=== PATIENT | female | born 1945 | race Two or more races ===

== ENCOUNTER 2020-11-29 05:42 | Inpatient (IN) | payer OTHER, MEDICAID ==
[~2020-11-29] VITALS: Ht 152.4 cm; Wt 72.6 kg
[~2020-11-29 05:42] MED LIST: AMLO-496 PO; APIX2.5T PO; GLIP5TAB12 PO; MEMA28CA; METF-372 PO; METO-6 PO; OMEP20CA74 PO; PRAV20TA3
[2020-11-29 06:52] LABS: Urine Bacteria NONE SEEN /hpf (None Seen); Urine Blood Negative /uL (Negative); Urine Specific Gravity 1.006 (1.001-1.035); Urine WBC 12 /hpf (0 - 5)
[2020-11-29 07:24] LABS: Basophils # (auto) 0 10 ^3/uL (0-0.2); Basophils % (auto) 0.6 % (0.0-2.0); Eosinophils # (auto) 0.1 10 ^3/uL (0-0.8); Eosinophils % (auto) 1.9 % (0.0-7.0); Hemoglobin 11.8 g/dL (12.2-16.2); Lymphocytes # (auto) 1.2 10 ^3/uL (0.4-5.4); Lymphocytes % (auto) 16.7 % (10.0-50.0); Mean Corpuscular Hemoglobin 30.4 pg (28.0-32.0); Mean Corpuscular Hgb Conc. 34.6 g/dL (32.0-36.0); Monocytes # (auto) 0.3 10 ^3/uL (0-1.3); Monocytes % (auto) 4.6 % (0.0-12.0); Neutrophils # (auto) 5.6 10 ^3/uL (1.6-8.6); Neutrophils % (auto) 76.2 % (37.0-80.0); Nucleated Red Blood Cells % 0.1 %; Red Blood Cells 3.87 10^6/uL (4.0-5.20); Red Cell Distribution Width 14.3 % (11.8-14.3); White Blood Cell 7.4 10^3/uL (4.4-10.8)
[2020-11-29] MEDS ORDERED: cefTRIAXone 1GM/50ML D5W 50 ML IV ONE (07:45)
[2020-11-29 07:51] LABS: Chloride 106 mmol/L (98-107); Potassium 3.3 mmol/L (3.5-5.1); Sodium 140 mmol/L (136-145)
[2020-11-29 07:53] LABS: INR 1.3 (0.9-1.15); Partial Thromboplastin Time 26.3 sec (23.0-31.2)
[2020-11-29 08:04] LABS: Alanine Aminotransferase 18 U/L (13-56); Albumin 3.6 g/dL (3.4-5.0); Alkaline Phosphatase 73 U/L (45-117); Anion Gap 7 (5-15); Aspartate Aminotransferase 13 U/L (15-37); Bilirubin, Total 0.6 mg/dL (0.2-1.0); Blood Urea Nitrogen 10 mg/dL (7-18); Calcium 8.9 mg/dL (8.5-10.1); Carbon Dioxide 27 mmol/L (21-32); GFR African American 94 mL/min; GFR Non-African American 78 mL/min; Glucose 167 mg/dL (74-106); Total Protein 7.5 g/dL (6.4-8.2)
[2020-11-29] MEDS ORDERED: SODIUM CHLORIDE 0.9% 1,000 ML IV ONE (09:15)
[2020-11-29] MEDS ORDERED: NITROGLYCERIN 0.4 MG SL TAB SL PRN (09:15)
[2020-11-29] MEDS ORDERED: MORPHINE SULF INJ 2 MG/ML SYRINGE 1ML IV PRN (09:15)
[2020-11-29] MEDS ORDERED: POTASSIUM CHL 20MEQ/100ML 100 ML IV SCH ×2 (10:45→12:00)
[2020-11-29] MEDS ORDERED: DEXTROSE (50%) 50ML SYRG IV PRN (11:00)
[2020-11-29] MEDS: ACCU-CHEK COMFORT CURVE STRIP VI SCH ×2 (12:10→18:45)
[2020-11-29] MEDS: InsuLIN REG 1unit/0.01ml Soln (100units/ml) SC SCH ×2 (12:13→18:45)
[2020-11-29 23:23] LABS: Folate (Folic Acid) 17.59 ng/mL (5.38-24)
[2020-11-30] MEDS: APIXABAN 2.5 MG TAB PO SCH ×3 (00:55→20:56)
[2020-11-30] MEDS: ATORVASTATIN 20 MG TAB PO SCH ×2 (00:55→21:04)
[2020-11-30] MEDS: PRAVASTATIN SODIUM 20 MG TAB PO SCH ×2 (00:56→21:04)
[2020-11-30] MEDS: InsuLIN REG 1unit/0.01ml Soln (100units/ml) SC SCH ×4 (05:59→17:36)
[2020-11-30] MEDS: ACCU-CHEK COMFORT CURVE STRIP VI SCH ×4 (06:00→17:37)
[2020-11-30 06:29] LABS: Basophils # (auto) 0.1 10 ^3/uL (0-0.2); Basophils % (auto) 0.7 % (0.0-2.0); Eosinophils # (auto) 0 10 ^3/uL (0-0.8); Eosinophils % (auto) 0.4 % (0.0-7.0); Hematocrit 33.6 % (36.0-46.0); Hemoglobin 11.6 g/dL (12.2-16.2); Lymphocytes # (auto) 1.8 10 ^3/uL (0.4-5.4); Lymphocytes % (auto) 21.2 % (10.0-50.0); Mean Corpuscular Hemoglobin 30.3 pg (28.0-32.0); Mean Corpuscular Hgb Conc. 34.6 g/dL (32.0-36.0); Mean Corpuscular Volume 87.7 fL (80.0-100.0); Monocytes # (auto) 0.5 10 ^3/uL (0-1.3); Monocytes % (auto) 5.8 % (0.0-12.0); Neutrophils % (auto) 71.9 % (37.0-80.0); Red Blood Cells 3.83 10^6/uL (4.0-5.20); Red Cell Distribution Width 14.2 % (11.8-14.3); White Blood Cell 8.4 10^3/uL (4.4-10.8)
[2020-11-30 06:42] LABS: Calcium 8.3 mg/dL (8.5-10.1); Potassium 3.3 mmol/L (3.5-5.1)
[2020-11-30 06:44] LABS: BUN/Creatinine Ratio 19.3
[2020-11-30 08:45] VITALS: BP 121/59
[2020-11-30 09:00] VITALS: BP 121/59
[2020-11-30] MEDS: amLODIPine BESYLATE 5 MG TAB PO SCH (09:59)
[2020-11-30] MEDS: MEMANTINE 28 MG PO SCH (10:00)
[2020-11-30] MEDS ORDERED: PATIENTS OWN MEDICATION (Amlodipine Besylate 1 TAB) PO SCH (10:00)
[2020-11-30] MEDS ORDERED: OMEPRAZOLE 20MG/10ML ORAL SUSP PO SCH (10:00)
[2020-11-30] MEDS ORDERED: MEMANTINE HYDROCHLORIDE SCH (10:00)
[2020-11-30] MEDS: METOPROLOL SUCCINATE XL 50 MG TAB PO SCH (10:00)
[2020-11-30] MEDS: PANTOPRAZOLE 40 MG TAB PO SCH (10:00)
[2020-11-30] MEDS: cefTRIAXone 1GM/50ML D5W 50 ML IV SCH (10:01)
[2020-11-30] MEDS ORDERED: POTASSIUM CHL 20MEQ/100ML 100 ML IV ONE (12:00)
[2020-11-30] MEDS ORDERED: ATOR20TA50 PO (12:09)
[2020-11-30] MEDS: MAGNESIUM SULFATE 1GM/100ML 100 ML IV SCH ×2 (12:30→14:50)
[2020-11-30 12:45] VITALS: BP 123/75
[2020-11-30 15:57] VITALS: BP 121/59
[2020-11-30 16:39] VITALS: BP 124/69
[2020-11-30 22:00] VITALS: BP 126/71
[2020-11-30 22:04] LABS: Hematocrit 31.9 % (36.0-46.0)
[2020-12-01] MEDS: ACCU-CHEK COMFORT CURVE STRIP VI SCH ×4 (00:05→18:12)
[2020-12-01] MEDS: InsuLIN REG 1unit/0.01ml Soln (100units/ml) SC SCH ×4 (00:09→18:13)
[2020-12-01 05:00] VITALS: BP 110/61
[2020-12-01 06:39] LABS: Urine Bacteria NONE SEEN /hpf (None Seen); Urine Blood 3+ /uL (Negative); Urine Budding Yeast FEW /hpf (None Seen); Urine Mucus FEW (None Seen); Urine Specific Gravity 1.015 (1.001-1.035); Urine WBC 284 /hpf (0 - 5)
[2020-12-01 09:00] VITALS: BP 103/54
[2020-12-01] MEDS: cefTRIAXone 1GM/50ML D5W 50 ML IV SCH (09:19)
[2020-12-01] MEDS: PANTOPRAZOLE 40 MG TAB PO SCH (09:21)
[2020-12-01] MEDS: METOPROLOL SUCCINATE XL 50 MG TAB PO SCH (09:22)
[2020-12-01] MEDS: amLODIPine BESYLATE 5 MG TAB PO SCH (09:23)
[2020-12-01] MEDS: APIXABAN 2.5 MG TAB PO SCH ×2 (09:23→22:00)
[2020-12-01] MEDS: MEMANTINE 28 MG PO SCH (09:24)
[2020-12-01] MEDS ORDERED: APIX2.5T PO (11:35)
[2020-12-01 11:47] LABS: Basophils # (auto) 0 10 ^3/uL (0-0.2); Basophils % (auto) 0.7 % (0.0-2.0); Eosinophils # (auto) 0 10 ^3/uL (0-0.8); Eosinophils % (auto) 0.2 % (0.0-7.0); Hematocrit 31.4 % (36.0-46.0); Hemoglobin 10.9 g/dL (12.2-16.2); Lymphocytes # (auto) 1.3 10 ^3/uL (0.4-5.4); Lymphocytes % (auto) 17.1 % (10.0-50.0); Mean Corpuscular Hemoglobin 30.4 pg (28.0-32.0); Mean Corpuscular Hgb Conc. 34.7 g/dL (32.0-36.0); Mean Corpuscular Volume 87.6 fL (80.0-100.0); Monocytes # (auto) 0.5 10 ^3/uL (0-1.3); Monocytes % (auto) 6.6 % (0.0-12.0); Neutrophils # (auto) 5.6 10 ^3/uL (1.6-8.6); Neutrophils % (auto) 75.4 % (37.0-80.0); Red Blood Cells 3.58 10^6/uL (4.0-5.20); Red Cell Distribution Width 14.4 % (11.8-14.3); White Blood Cell 7.4 10^3/uL (4.4-10.8)
[2020-12-01 12:04] LABS: BUN/Creatinine Ratio 16.4; Calcium 8.1 mg/dL (8.5-10.1); Potassium 3.6 mmol/L (3.5-5.1)
[2020-12-01 13:00] VITALS: BP 110/58
[2020-12-01 16:40] VITALS: BP 115/67
[2020-12-01] MEDS ORDERED: ACETAMINOPHEN 325 MG TAB PO PRN (17:15)
[2020-12-01 22:00] VITALS: BP 111/67
[2020-12-01] MEDS: ATORVASTATIN 20 MG TAB PO SCH (22:26)
[2020-12-01] MEDS: PRAVASTATIN SODIUM 20 MG TAB PO SCH (22:27)
[2020-12-02] MEDS: ACCU-CHEK COMFORT CURVE STRIP VI SCH ×2 (00:07→05:52)
[2020-12-02] MEDS: InsuLIN REG 1unit/0.01ml Soln (100units/ml) SC SCH ×2 (00:29→05:52)
[2020-12-02 05:29] VITALS: BP 109/59
[2020-12-02 09:00] VITALS: BP 111/66
[2020-12-02] MEDS: APIXABAN 2.5 MG TAB PO SCH (10:00)
[2020-12-02] MEDS: MEMANTINE 28 MG PO SCH (10:00)
[2020-12-02] MEDS: PANTOPRAZOLE 40 MG TAB PO SCH (10:12)
[2020-12-02] MEDS: amLODIPine BESYLATE 5 MG TAB PO SCH (10:12)
[2020-12-02] MEDS: cefTRIAXone 1GM/50ML D5W 50 ML IV SCH (10:12)
[2020-12-02] MEDS: METOPROLOL SUCCINATE XL 50 MG TAB PO SCH (10:12)
== END 2020-12-02 11:33 | disposition home health service (06) | DRG 64 ==
LOC: ER 05:42 → EDBD 05:42 → TELE 09:04 → TELE-EAST 11-30 08:45 → TELE-WESTW 12-01 21:58
PROVIDERS: ADMIT Internal Medicine; ATTEND Internal Medicine
DX: I63.512 Cerebral infarction due to unspecified occlusion or stenosis of left middle cerebral artery (principal); G93.41 Metabolic encephalopathy; N39.0 Urinary tract infection, site not specified; R47.01 Aphasia; H53.461 Homonymous bilateral field defects, right side; E87.6 Hypokalemia; I48.91 Unspecified atrial fibrillation; E11.9 Type 2 diabetes mellitus without complications; K21.9 Gastro-esophageal reflux disease without esophagitis; Z20.822 Contact with and (suspected) exposure to COVID-19; E78.5 Hyperlipidemia, unspecified; E83.42 Hypomagnesemia; F03.90 Unspecified dementia, unspecified severity, without behavioral disturbance, psychotic disturbance, mood disturbance, and anxiety; I11.0 Hypertensive heart disease with heart failure; I50.9 Heart failure, unspecified; Z79.01 Long term (current) use of anticoagulants; Z79.899 Other long term (current) drug therapy; Z82.49 Family history of ischemic heart disease and other diseases of the circulatory system; Z83.3 Family history of diabetes mellitus; Z90.710 Acquired absence of both cervix and uterus
CPT/HCPCS: 36415; 70450; 70551; 71045; 76536; 80048; 80053; 81001; 82140; 82607; 82746; 82962; 83735; 83880; 84436; 84443; 84480; 84484; 85014; 85018; 85025; 85610; 85730; 87040; 87081; 87086; 87426; 92610; 93005; 93306; 93886; 96365; 97116; 97163; 97530; G0378; J0696; J1815; J3480

== ENCOUNTER 2024-11-12 10:57 | Inpatient (IN) | payer OTHER ==
[~2024-11-12] VITALS: Ht 144.8 cm; Wt 54.5 kg
[~2024-11-12 10:57] MED LIST changes: -AMLO-496 PO; +AMLO1TAB23 PO; +ATOR20TA50 PO; +BACDST PO; -GLIP5TAB12 PO; -PRAV20TA3
--- NOTE | 2024-11-12 11:04 | ED.PDOC ---
History of Present Illness HPI Comments HPI: This is a 78 year old female ANGÉLICAA presenting to the ED with chief complaint of nausea. EMS reports that the patient's family had noticed the patient appeared nauseous with associated diaphoresis and pale skin, however, after calling 911, all her symptoms resolved at home. EMS relays that the family wish ed to have her transported to the hospital anyway for evaluation. EMS states patient is difficult to converse with at baseline due to her history of dementia. Patient unable to answer questions properly at this time. Initial Vitals BP: 120/86 HR: 110 RR: 20 O2 Sat: 98% Temp: 97.8F Past Medical history: HTN, DM, CVA, A-Fib, CHF, Dementia Past Surgical history: Hysterectomy Social History: Denies smoking, ETOH, and drug use. Allergies: NKDA REVIEW OF SYSTEMS: Unable to obtain given the patient dementia. CONSTITUTIONAL: Denies acute: fever, diaphoresis, chills, generalized weakness. HEAD: Denies acute: headache, photophobia Eyes: Denies acute: Double vision, vision loss, eye pain, eye discharge. EARS: Denies acute: tinnitus, hearing loss, ear discharge, ear pain, THROAT: Denies acute: sore throat, swelling, difficulty swallowing , pain with swallowing, change in voice. NECK: Denies acute: neck pain, neck swelling, stiff neck. HEART: Denies acute : chest pain, palpitations, LUNGS: Denies acute: SOB, wheezing, cough, hemoptysis ABDOMEN: Denies acute: abdominal pain, Nausea, Vomiting, diarrhea, melena , hematemesis, hematochezia SKIN: Denies acute: rash, redness, lesions, itchiness. EXTREMITIES: Denies acute: calf pain, numbness, tingling, weakness, denies pain in extremity. Denies acute: Low back pain. Neuro: Denies acute: focal neurological deficit, motor or sensory focal neurological deficit, tremors, seizure like activity, confusion, dizziness, change in mental status, loss of bowel or bladder function, cauda equina like symptoms. : Denies acute: dysuria, hematuria, flank pain, increase in urinary frequency. PSYCH: Denies acute: hallucination, suicidal ideation, homicidal ideation. FEMALE: Denies acute: abnormal vaginal bleeding, foul odor, unusual discharge. PHYSICAL EXAM: General: ----no----acute distress, awake and alert. Head: normocephalic, atraumatic. Neck: supple, trachea is midline, no swelling. Throat: Normal phonation. Eyes:, no erythema, no purulent discharge, no proptosis, no icterus. Heart: regular rate, regular rhythm, no significant murmur appreciated. Lungs: no apparent respiratory distress, No wheezing, no rhonchi, no crackles. No stridors Clear to auscultation bilaterally. Abdomen: non tender to palpation, non distended, soft, no guarding, no rebound, + bowel sounds. Neuro: Awake, Alert, baseline dementia. Skin: no petechia, no purpura, no cyanosis, non-pale, not jaundice. Lower extremities: --no - Pitting edema no deformity, no focal swelling, no calf TTP. Makes eye contact. moves all four extremities. Face: no apparent facial droop. ED COURSE: DISCLAIMER: This medical document was created using an electronic medical record system with voice recognition software and computerized dictation system. Although this document has been carefully reviewed, there might still be some phonetic and typographical errors. Occasional wrong-word or "sound-alike" substitutions may have occurred due to the inherent limitations of voice recognition software. These areas are purely typographical due to imperfections of the software programs and do not reflect any compromise in the patient's medical care. Please read the chart carefully and recognize, using context, where these substitutions have occurred. Time Seen by MD: 11:02 Primary Care Provider: UNKNOWN Reviewed Notes: Nurses Notes, Medications, Allergies Allergies: Coded Allergies: NO KNOWN ALLERGIES (Unverified , 03/26/14) Home Meds Active Scripts Sulfamethoxazole W/Trimethopri (Bactrim Ds Tablet) 1 Tab Tb, 1 TAB PO BID, #14 TAB Prov:PEPE SALGADO MD 09/03/22 Apixaban Base (ELIQUIS) 2.5 Mg Tab, 5 MG PO BID, #60 TAB Prov:PEPE SALGADO MD 12/01/20 Atorvastatin Calcium (ATORVASTATIN CALCIUM) 20 Mg Tab, 40 MG PO HS, #60 TAB Prov:PEPE SALGADO MD 11/30/20 Metoprolol Succinate (Toprol Xl) 50 Mg Tb, 25 MG PO DAILY, #30 TAB Prov:GILBERT DANIELS MD 01/14/15 Reported Medications Omeprazole (PRILOSEC) 20 Mg Cap, 1 CAP PO DAILY, #90 CAP 1 Refill 01/12/15 Amlodipine Besylate (Amlodipine Besylate) 10 Mg Tab, 1 TAB PO DAILY, #90 HOLD IF SYSOLIC BP BELOW 120 01/12/15 Metformin Hydrochloride (Metformin Hcl) 1,000 Mg Tab, 1 TAB PO BID, #180 01/12/15 Memantine Hydrochloride (NAMENDA XR) 28 Mg Cap, 1 TAB DAILY, #30 01/12/15 Information Source: Patient, Emergency Med Personnel Mode of Arrival: EMS Was a procedure done? Was a procedure done?: No X-Ray, Labs, Meds, VS Vital Signs Date Time Temp Pulse Resp B/P (MAP) Pulse Ox O2 Delivery O2 Flow Rate FiO2 11/12/24 11:18 97.5 112 20 120/86 (97) 98 97.5 11/12/24 11:09 100 Lab Test 11/12/24 11:18 11/12/24 11:13 Range/Units White Blood Count 4.8 4.4-10.8 10^3/uL Red Blood Count 4.10 4.0-5.20 10^6/uL Hemoglobin 13.5 12.2-16.2 g/dL Hematocrit 39.5 36.0-46.0 % Mean Corpuscular Volume 96.3 80.0-100.0 fL Mean Corpuscular Hemoglobin 32.9 H 28.0-32.0 pg Mean Corpuscular Hemoglobin Concent 34.1 32.0-36.0 g/dL Red Cell Distribution Width 13.4 11.8-14.3 % Platelet Count 247 140-450 10^3/uL Mean Platelet Volume 7.5 6.9-10.8 fL Neutrophils (%) (Auto) 59.8 37.0-80.0 % Lymphocytes (%) (Auto) 28.7 10.0-50.0 % Monocytes (%) (Auto) 6.9 0.0-12.0 % Eosinophils (%) (Auto) 4.2 0.0-7.0 % Basophils (%) (Auto) 0.4 0.0-2.0 % Neutrophils # (Auto) 2.8 1.6-8.6 10 ^3/uL Lymphocytes # (Auto) 1.4 0.4-5.4 10 ^3/uL Monocytes # (Auto) 0.3 0-1.3 10 ^3/uL Eosinophils # (Auto) 0.2 0-0.8 10 ^3/uL Basophils # (Auto) 0 0-0.2 10 ^3/uL Nucleated Red Blood Cells 0.1 % Sodium Level 141 136-145 mmol/L Potassium Level 3.9 3.5-5.1 mmol/L Chloride Level 107 98-107 mmol/L Carbon Dioxide Level 23 20-31 mmol/L Anion Gap 11 5-15 Blood Urea Nitrogen 10 9-23 mg/dL Creatinine 0.96 0.550-1.02 mg/dL Glomerular Filtration Rate Calc 60 >90 mL/min BUN/Creatinine Ratio 10.4 10.0-20.0 Serum Glucose 231 H 74-106 mg/dL Lactic Acid Level 2.2 *H 0.4-2.0 mmol/L Calcium Level 10.0 8.7-10.4 mg/dL Total Bilirubin 1.0 0.2-1.0 mg/dL Aspartate Amino Transferase (AST) 21 13-40 U/L Alanine Aminotransferase (ALT) 11 7-40 U/L Alkaline Phosphatase 82 46-116 U/L Troponin I High Sensitivity 8 </=34 ng/L Total Protein 6.5 5.7-8.2 g/dL Albumin 4.0 3.2-4.8 g/dL Urine Color Colorless Yellow Urine Clarity Turbid H Clear Urine pH 6.0 5.0-9.0 Urine Specific [place] 1.005 1.001-1.035 Urine Protein Trace H Negative Urine Ketones Negative Negative Urine Blood 3+ H Negative /uL Urine Nitrite Negative Negative Urine Bilirubin Negative Negative Urine Urobilinogen Normal Negative mg/dL Urine Leukocyte Esterase 3+ Negative /uL Urine RBC 12 0 - 4 /hpf Urine Microscopic WBC 86 H 0-5 /HPF Urine Squamous Epithelial Cells Few <5 /hpf Urine Bacteria Mod H None Seen /hpf Urine Glucose Normal Normal mg/dL Current Medications Medications (Trade) Dose Ordered Sig/Noam Route Start Time Stop Time Status Last Admin Ceftriaxone Sodium 50 ml @ 100 mls/hr ONCE ONCE IV 11/12/24 12:15 11/12/24 12:44 DC 11/12/24 16:34 Sodium Chloride 1,000 ml @ 1,000 mls/hr Q1H ONCE IV 11/12/24 12:15 11/12/24 13:14 DC 11/12/24 16:34 Vancomycin HCl 200 ml @ 200 mls/hr ONCE ONCE IV 11/12/24 13:45 11/12/24 14:44 DC 11/12/24 17:37 [place] [id number] Ph: [phone] DIAGNOSTIC IMAGING Diagnostic Imaging Report : [id number] Signed PATIENT: RICHIE SMITH ACCT: [id number] UNIT: [id number] : 1945 LOC: ER ROOM / BED: / AGE / SEX: 78 / F ADM STATUS: REG ER SERVICE 1101 ORDERING PHYSICIAN: BECKY RUFFIN DO PROCEDURE(s): CXRP - CHEST PORTABLE REASON: wellness check ORDER NUMBER(s): [id number], ACCESSION NUMBER(s): [id number] EXAM: XY CHEST PORTABLE Indication: pain Technique: Single frontal view of the chest was obtained Comparison: XY CHEST PORTABLE on DOS: 09/03/22, CHEST XRAY 1 VIEW on DOS: 11/29/20 FINDINGS: Lines and Tubes: None Lungs: No focal consolidation. Pleura: No effusion. No pneumothorax. Cardiomediastinal contours: Unremarkable Bones: No acute osseous abnormality. IMPRESSION: No acute cardiopulmonary disease. ATED BY: ALYCIA IQBAL MD DICTATED DATE/TIME: 11/12/24 1138 SIGNED BY: ALYCIA IQBAL MD SIGNED DATE/TIME: 11/12/24 1138 CC: Time of 1ST Reevaluation: 12:02 Reevaluation 1ST: Unchanged Time of 2ND Reevaluation: 13:38 (The case was discussed with the admitting team (HPI, physical exam, labs and diagnostic tests that were available at the time of disposition, ED course, treatment plan) on the phone. They agreed to admit the patient to their service and assume care of this patient from this point forward. --- LETITIA. SEPSIS BUNDLE INITIATED) Patient Education/Counseling: Other Family Education/Counseling: No Family Present Departure 1 Departure Time of Disposition: 12:16 Impression: Primary Impression: Urinary tract infection in elderly patient Additional Impression: Elevated lactic acid level Disposition: ADMITTED INPATIENT Admit to: Tele Condition: Guarded Discharged With: Self Critical Care Note Critical Care Time?: No Heart Score Heart Score: Heart Score Response (Comments) Value History N/A 0 EKG N/A 0 Age N/A 0 Risk Factors N/A 0 Troponin N/A 0 Total 0 I personally scribed for BECKY RUFFIN DO ([email or web address]) on 11/12/24 at 11:04. Electronically submitted by Vance Merrill ([email or web address]). I personally scribed for BECKY RUFFIN DO ([email or web address]) on 11/12/24 at 11:55. Electronically submitted by Vance Merrill ([email or web address]). I personally scribed for BECKY RUFFIN DO ([email or web address]) on 11/12/24 at 20:29. Electronically submitted by Vance Merrill ([email or web address]). BECKY RUFFIN DO Nov 12, 2024 11:04
[2024-11-12 11:34] LABS: Hematocrit 39.5 % (36.0-46.0); Hemoglobin 13.5 g/dL (12.2-16.2); Mean Corpuscular Hemoglobin 32.9 pg (28.0-32.0); Mean Corpuscular Volume 96.3 fL (80.0-100.0); Nucleated Red Blood Cells % 0.1 %
--- NOTE | 2024-11-12 11:40 | DVH ---
EXAM: XY CHEST PORTABLE Indication: pain Technique: Single frontal view of the chest was obtained Comparison: XY CHEST PORTABLE on DOS: 09/03/22, CHEST XRAY 1 VIEW on DOS: 11/29/20 FINDINGS: Lines and Tubes: None Lungs: No focal consolidation. Pleura: No effusion. No pneumothorax. Cardiomediastinal contours: Unremarkable Bones: No acute osseous abnormality. IMPRESSION: No acute cardiopulmonary disease.
[2024-11-12 11:50] LABS: Alanine Aminotransferase 11 U/L (7-40); Albumin 4.0 g/dL (3.2-4.8); Alkaline Phosphatase 82 U/L (46-116); Anion Gap 11 (5-15); BUN/Creatinine Ratio 10.4 (10.0-20.0); Bilirubin, Total 1.0 mg/dL (0.2-1.0); Blood Urea Nitrogen 10 mg/dL (9-23); Calcium 10.0 mg/dL (8.7-10.4); Carbon Dioxide 23 mmol/L (20-31); Chloride 107 mmol/L (98-107); Potassium 3.9 mmol/L (3.5-5.1); Sodium 141 mmol/L (136-145); Total Protein 6.5 g/dL (5.7-8.2)
[2024-11-12 11:51] LABS: Glucose 231 mg/dL (74-106)
[2024-11-12 11:56] LABS: Lactic Acid w/Reflex 2.2 mmol/L (0.4-2.0)
[2024-11-12] MEDS: cefTRIAXone 1GM/50ML D5W 50 ML IV ONE (13:25)
[2024-11-12] MEDS: SODIUM CHLORIDE 0.9% 1,000 ML IV ONE (13:26)
[2024-11-12] MEDS ORDERED: CEFEPIME 1GM/ 50ML 50 ML IV SCH (14:00)
[2024-11-12] MEDS ORDERED: ACETAMINOPHEN 325 MG TAB PO PRN (14:30)
[2024-11-12] MEDS ORDERED: NITROGLYCERIN 0.4 MG SL TAB SL PRN (14:30)
[2024-11-12] MEDS ORDERED: MORPHINE SULFATE INJ 2 MG/ml SYRG IV PRN (14:30)
[2024-11-12] MEDS ORDERED: ONDANSETRON HCL 4 MG/2 ML VIAL IV PRN (14:30)
[2024-11-12] MEDS ORDERED: DEXTROSE (50%) 50ML SYRG IV PRN (14:30)
--- NOTE | 2024-11-12 14:30 | DVHHP2 ---
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 Dyspnea, Edema, Lt Headedness, Other Neurological: Confusion Allergies: Coded Allergies: NO KNOWN ALLERGIES (Unverified , 03/26/14) Medications Current Medications Medications Dose Ordered Sig/Noam Route Start Time Stop Time Status Last Admin Dose Admin Apixaban 5 mg BID PO 11/12/24 22:00 Atorvastatin Calcium 40 mg HS PO 11/12/24 22:00 Metoprolol Succinate 25 mg DAILY PO 11/13/24 10:00 Cefepime HCl 50 ml @ 12.5 mls/hr Q12HR IV 11/12/24 22:00 Exam Vital Signs Vital Signs Date Time Temp Pulse Resp B/P (MAP) Pulse Ox O2 Delivery O2 Flow Rate FiO2 11/12/24 11:18 97.5 112 20 120/86 (97) 98 97.5 General Appearance: Alert, Other (confused and agitated. family at bedside) HEENT: Atraumatic, PERRLA Respiratory: Clear to auscultation, Normal air movement Cardiovascular: Regular rate, Normal S1, Normal S2, No murmurs Abdominal: Normal bowel sounds, Soft, No tenderness Extremities: No edema, Normal pulses Skin: No rashes Psych/Mental Status: Other (confused) Labs/Xrays Labs Test 11/12/24 11:18 11/12/24 11:13 Range/Units White Blood Count 4.8 4.4-10.8 10^3/uL Red Blood Count 4.10 4.0-5.20 10^6/uL Hemoglobin 13.5 12.2-16.2 g/dL Hematocrit 39.5 36.0-46.0 % Mean Corpuscular Volume 96.3 80.0-100.0 fL Mean Corpuscular Hemoglobin 32.9 H 28.0-32.0 pg Mean Corpuscular Hemoglobin Concent 34.1 32.0-36.0 g/dL Red Cell Distribution Width 13.4 11.8-14.3 % Platelet Count 247 140-450 10^3/uL Mean Platelet Volume 7.5 6.9-10.8 fL Neutrophils (%) (Auto) 59.8 37.0-80.0 % Lymphocytes (%) (Auto) 28.7 10.0-50.0 % Monocytes (%) (Auto) 6.9 0.0-12.0 % Eosinophils (%) (Auto) 4.2 0.0-7.0 % Basophils (%) (Auto) 0.4 0.0-2.0 % Neutrophils # (Auto) 2.8 1.6-8.6 10 ^3/uL Lymphocytes # (Auto) 1.4 0.4-5.4 10 ^3/uL Monocytes # (Auto) 0.3 0-1.3 10 ^3/uL Eosinophils # (Auto) 0.2 0-0.8 10 ^3/uL Basophils # (Auto) 0 0-0.2 10 ^3/uL Nucleated Red Blood Cells 0.1 % Sodium Level 141 136-145 mmol/L Potassium Level 3.9 3.5-5.1 mmol/L Chloride Level 107 98-107 mmol/L Carbon Dioxide Level 23 20-31 mmol/L Anion Gap 11 5-15 Blood Urea Nitrogen 10 9-23 mg/dL Creatinine 0.96 0.550-1.02 mg/dL Glomerular Filtration Rate Calc 60 >90 mL/min BUN/Creatinine Ratio 10.4 10.0-20.0 Serum Glucose 231 H 74-106 mg/dL Lactic Acid Level 2.2 *H 0.4-2.0 mmol/L Calcium Level 10.0 8.7-10.4 mg/dL Total Bilirubin 1.0 0.2-1.0 mg/dL Aspartate Amino Transferase (AST) 21 13-40 U/L Alanine Aminotransferase (ALT) 11 7-40 U/L Alkaline Phosphatase 82 46-116 U/L Troponin I High Sensitivity 8 </=34 ng/L Total Protein 6.5 5.7-8.2 g/dL Albumin 4.0 3.2-4.8 g/dL Urine Color Colorless Yellow Urine Clarity Turbid H Clear Urine pH 6.0 5.0-9.0 Urine Specific [place] 1.005 1.001-1.035 Urine Protein Trace H Negative Urine Ketones Negative Negative Urine Blood 3+ H Negative /uL Urine Nitrite Negative Negative Urine Bilirubin Negative Negative Urine Urobilinogen Normal Negative mg/dL Urine Leukocyte Esterase 3+ Negative /uL Urine RBC 12 0 - 4 /hpf Urine Microscopic WBC 86 H 0-5 /HPF Urine Squamous Epithelial Cells Few <5 /hpf Urine Bacteria Mod H None Seen /hpf Urine Glucose Normal Normal mg/dL SEPSIS Sepsis Screen Date sepsis recognized/suspect: Nov 12, 2024 Time Sepsis recognized/suspect: 1099 Recent Procedure: No On Antibiotic Therapy: No Respiratory Rate >20: No Heart Rate >90: Yes Temp<36 C (96.8 F) or >38.3 C: No SBP <90 or MAP <65 mmHG: No New Acute Mental Status Change: No Is the patient on CPAP, BIPAP,: No Physician Orders Baby Stroller Rental Clerk (11/12/24 ) Chest Portable (11/12/24 11:01) Electrocardigram (11/12/24 11:01) Troponin-I Hs (11/12/24 12:01) Troponin-I Hs (11/12/24 14:01) Blood Culture (11/12/24 13:25) Apixaban (Eliquis) (11/12/24 22:00) Atorvastatin (Lipitor) (11/12/24 22:00) Metoprolol Xl Succinate (Toprol Xl) (11/13/24 10:00) Urine Bacterial Culture (11/12/24 13:35) PTPTT (11/12/24 13:36) Accucheck (11/12/24 13:36) Vancomycin 1gm/200ml Pm (11/12/24 13:45) Lactic Acid W/ Reflex Order (11/12/24 14:00) Lactic Acid W/ Reflex Order (11/12/24 16:00) Notify Md If Map <65 Or Bp<90 (11/12/24 13:36) If Map<65 Start Vasopressor (11/12/24 13:36) Sepsis Reassesment After Fluid (11/12/24 14:36) Cefepime 1gm/ 50ml (Maxipime 1gm/50ml) (11/12/24 22:00) Admit (11/12/24 14:26) Cardiac Diet-2gna,Lofat,Lochol (11/12/24 Dinner) Pt Request For Service (11/12/24:) Basic Metabolic Panel (11/13/24 04:00) Complete Blood Count (11/13/24 04:00) Nitroglycerin Sublingual (Ntrostat Subli (11/12/24:) Morphine Sulfate Injection (11/12/24:) Stat Ekg For Chest Pain (11/12/24) Notify Md Of Changes From Base (11/12/24) Favor Maker For 24 Hours (11/12/24) Emergency Dysrhythmia Protocol (11/12/24) Rhythm Strips Once Every Shift (11/12/24) Oxygen By Nasal Cannula (11/12/24) Glucose Blood (Accu-Chek Comfort Curve T (11/12/24 17:00) Bedtime Insulin Scale (11/12/24 22:00) Moderate Insulin Ss (11/12/24 17:00) Dextrose 50% Syringe (11/12/24:30) Ondansetron Hcl (Zofran) (11/12/24:30) Acetaminophen Tablet (Tylenol Tablet) (11/12/24:) Famotidine Tablet (Pepcid Tablet) (11/13/24 10:00) NS (11/12/24:) Vital Signs Date Time Temp Pulse Resp B/P (MAP) Pulse Ox O2 Delivery O2 Flow Rate FiO2 11/12/24 11:18 97.5 112 20 120/86 (97) 98 97.5 11/12/24 11:09 100 Laboratory Tests Test 11/12/24 11:18 Lactic Acid Level 2.2 mmol/L (0.4-2.0) *H White Blood Count 4.8 10^3/uL (4.4-10.8) Assessment/Plan Assessment/Plan We will admit to hospital. Daughter does not want her to get any medications to control her agitation. Apparently Haldol Ativan other medicines for make it worse. She is not on any dementia medications as well. Patient appears to have advanced dementia per daughter. Patient apparently treated with antibiotics in the past for recurrent UTIs. Her lactic acid is mildly elevated. At present patient is not cooperative to place IV for IV antibiotics or IV fluids are to repeat labs. I have advised the daughter that if she does not cooperate we may have to sedate her to get IV access to give her at least some IV fluids and antibiotics till we stabilize her and also send the urine for urinalysis and culture. Fall and aspiration precautions. Otherwise continue rest of supportive care and treatment. Follow clinical management per clinical course. Daughter is aware of her dementia with unable to comprehend and may not able to receive recommended care. Plan discussed with: Daughter My Orders Orders - KELLY VALDES MD Procedure Category Date Status Time Blood Culture JUDY 11/12/24 Logged 13:25 Apixaban (Eliquis) PHA 11/12/24 In Process 22:00 Atorvastatin (Lipitor) PHA 11/12/24 In Process 22:00 Metoprolol Xl PHA 11/13/24 In Process Succinate (Toprol Xl) 10:00 Admit ADMIT 11/12/24 Transmitted 14:26 Cardiac DIET 11/12/24 Transmitted Diet-2gna,Lofat,Lochol Dinner Pt Request For Service PT 11/12/24 Transmitted 14:26 Basic Metabolic Panel LAB 11/13/24 Verified 04:00 Complete Blood Count LAB 11/13/24 Verified 04:00 Nitroglycerin PHA 11/12/24 Transmitted Sublingual (Ntrostat 14:30 Morphine Sulfate PHA 11/12/24 Transmitted Injection 14:30 Stat Ekg For Chest JENN 11/12/24 Transmitted Pain 14:26 Notify Md Of Changes [facility] 11/12/24 Transmitted From Base 14:26 Favor Maker For [facility] 11/12/24 Transmitted 24 Hours 14:26 Emergency Dysrhythmia JENN 11/12/24 Transmitted Protocol 14:26 Rhythm Strips Once [facility] 11/12/24 Transmitted Every Shift 14:26 Oxygen By Nasal RT 11/12/24 Transmitted Cannula 14:26 Glucose Blood PHA 11/12/24 Transmitted (Accu-Chek Comfort 17:00 Bedtime Insulin Scale PHA 11/12/24 Transmitted 22:00 Moderate Insulin Ss PHA 11/12/24 Transmitted 17:00 Dextrose 50% Syringe PHA 11/12/24 Transmitted 14:30 Ondansetron Hcl PHA 11/12/24 Transmitted (Zofran) 14:30 Acetaminophen Tablet PHA 11/12/24 Transmitted (Tylenol Tablet) 14:30 Famotidine Tablet PHA 11/13/24 Transmitted (Pepcid Tablet) 10:00 NS PHA 11/12/24 Transmitted 14:30 Problem List: (1) Metabolic encephalopathy (2) Urinary tract infection in elderly patient (3) Atrial fibrillation (4) Diabetes type 2, uncontrolled KELLY VALDES MD Nov 12, 2024 14:30
[2024-11-12 15:07] VITALS: PULSE 107; RESP 20; O2SAT 98
[2024-11-12 15:19] LABS: INR 1.21 (0.9-1.15); Partial Thromboplastin Time 27.0 SEC (24.5-34.5); Prothrombin Time 12.6 sec (9.3-11.8)
[2024-11-12] MEDS: VANCOMYCIN 1GM/200ML PM 200 ML IV ONE (17:37)
[2024-11-12] MEDS: SODIUM CHLORIDE 0.9% 1,000 ML IV SCH (17:37)
[2024-11-12] MEDS: InsuLIN REG 1unit/0.01ml Soln (100units/ml) SC SCH ×2 (17:44→22:00)
[2024-11-12] MEDS: ACCU-CHEK COMFORT CURVE STRIP VI SCH (17:45)
[2024-11-12] MEDS ORDERED: HALOPERIDOL LACTATE 5 MG/ML INJ VIAL IM ONE (19:00)
[2024-11-12 20:16] VITALS: PULSE 80; RESP 18; O2SAT 97
[2024-11-12 20:18] LABS: Lactic Acid w/Reflex 2.6 mmol/L (0.4-2.0)
[2024-11-12] MEDS: SODIUM CHLORIDE 0.9% 500 ML IV ONE (20:30)
[2024-11-12] MEDS: APIXABAN 2.5 MG TAB PO SCH (22:00)
[2024-11-12] MEDS: CEFEPIME 1GM/ 50ML 50 ML IV SCH (22:00)
[2024-11-12] MEDS: ATORVASTATIN 20 MG TAB PO SCH (22:00)
[2024-11-12 23:08] VITALS: RESP 20
[2024-11-13 05:00] VITALS: BP 163/84; PULSE 106; RESP 18; O2SAT 99
[2024-11-13] MEDS: METOPROLOL SUCCINATE XL 50 MG TAB PO SCH (05:09)
--- NOTE | 2024-11-13 07:14 | ECG ---
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
[2024-11-13 08:00] VITALS: PULSE 18; RESP 18; O2SAT 98
[2024-11-13 09:00] VITALS: BP 145/78; PULSE 86; RESP 19; TEMP 98; O2SAT 98
[2024-11-13] MEDS: FAMOTIDINE 20 MG TAB PO SCH (10:15)
[2024-11-13 13:00] VITALS: BP 158/82; PULSE 90; RESP 20; TEMP 97.8; O2SAT 94
[2024-11-13 13:09] LABS: Hematocrit 42.8 % (36.0-46.0); Hemoglobin 14.1 g/dL (12.2-16.2); Mean Corpuscular Hemoglobin 32.6 pg (28.0-32.0); Mean Corpuscular Volume 98.9 fL (80.0-100.0); Nucleated Red Blood Cells % 0.0 %
[2024-11-13 13:15] LABS: Anion Gap 11 (5-15); Carbon Dioxide 23 mmol/L (20-31); Chloride 104 mmol/L (98-107); Potassium 4.5 mmol/L (3.5-5.1); Sodium 138 mmol/L (136-145)
[2024-11-13 13:16] LABS: Calcium 10.2 mg/dL (8.7-10.4)
[2024-11-13 13:21] LABS: BUN/Creatinine Ratio 17.6 (10.0-20.0); Blood Urea Nitrogen 16 mg/dL (9-23); Glucose 210 mg/dL (74-106)
[2024-11-13 13:28] LABS: Lactic Acid w/Reflex 2.3 mmol/L (0.4-2.0)
[2024-11-13 13:42] LABS: Urine Protein, UAD TRACE (Negative)
[2024-11-13] MEDS: SODIUM CHLORIDE 0.9% 1,000 ML IV SCH (15:16)
--- NOTE | 2024-11-13 16:06 | DVHPN2 ---
Progress Note - Dictate Date Seen: Nov 13, 2024 Medical Necessity Reason Pt with a Central, PICC or Fol: No Subjective Sitting in the chair. Pleasantly confused. Still apparently refusing IV medications and treatment per nurse. vital signs Vital Sign Date Time Temp Pulse Resp B/P (MAP) Pulse Ox O2 Delivery O2 Flow Rate FiO2 11/13/24 13:00 97.8 90 20 158/82 (107) 94 97.8 11/13/24 08:00 Room Air* 0 21 Total Intake and Output 11/12/24 11/12/24 11/13/24 15:00 23:00 07:00 Intake Total 250 ml Balance 250 ml medications Current Medications Medications Dose Ordered Sig/Noam Route Start Time Stop Time Status Last Admin Dose Admin Apixaban 5 mg BID PO 11/12/24 22:00 11/13/24 10:15 5 MG Atorvastatin Calcium 40 mg HS PO 11/12/24 22:00 Metoprolol Succinate 25 mg DAILY PO 11/13/24 10:00 11/13/24 05:09 25 MG Nitroglycerin 0.4 mg Q5MINP PRN SL 11/12/24 14:30 Morphine Sulfate 2 mg Q30M PRN IV 11/12/24 14:30 Diagnostic Test (Pha) 1 strip ACHS 11/12/24 17:00 11/13/24 11:23 1 STRIP Insulin Human Regular HS SC 11/12/24 22:00 Insulin Human Regular AC SC 11/12/24 17:00 11/12/24 17:44 6 UNITS Dextrose 50 ml UD PRN IV 11/12/24 14:30 Ondansetron HCl 4 mg Q4HPRN PRN IV 11/12/24 14:30 Acetaminophen 650 mg Q6HP PRN PO 11/12/24 14:30 Famotidine 20 mg DAILY PO 11/13/24 10:00 11/13/24 10:15 20 MG Sodium Chloride 1,000 ml @ 100 mls/hr Q10H IV 11/13/24 14:00 11/13/24 15:16 100 MLS/HR Ceftriaxone Sodium 50 ml @ 100 mls/hr DAILY@09 IV 11/14/24 09:00 Metformin HCl 500 mg BIDWM PO 11/13/24 18:00 objective Pleasantly confused in chair without distress. Heart regular rate and rhythm S1-S2. Lungs poor inspiratory effort without wheezing. Abdomen soft positive bowel sounds. Extremities no edema laboratory and microbiology Laboratory Tests 11/13/24 12:50 Test 11/13/24 12:50 Range/Units Serum Glucose 210 H 74-106 mg/dL Assessment/Plan We will repeat labs given she refused earlier. Send urine for culture if she allows. Continue IV fluids and IV antibiotics. Otherwise further clinical management per clinical course. Discussed with the nurse at bedside regarding care plan. Problems(with codes): (1) Diabetes type 2, uncontrolled (2) Atrial fibrillation (3) Urinary tract infection in elderly patient (4) Elevated lactic acid level Plan discussed with: Other KELLY VALDES MD Nov 13, 2024 16:06
[2024-11-13] MEDS: cefTRIAXone 1GM/50ML D5W 50 ML IV ONE (18:33)
[2024-11-13 20:00] VITALS: PULSE 88; RESP 18; O2SAT 98
[2024-11-13 21:00] VITALS: BP 159/78; PULSE 94; RESP 19; TEMP 97.5; O2SAT 96
[2024-11-14 05:00] VITALS: BP 152/90; PULSE 77; RESP 18; TEMP 97.3; O2SAT 99
[2024-11-14 08:00] VITALS: RESP 18; O2SAT 98
[2024-11-14] MEDS ORDERED: SODIUM CHLORIDE 0.9% 1,000 ML IV SCH (08:00)
[2024-11-14] MEDS ORDERED: cefTRIAXone 1GM/50ML D5W 50 ML IV SCH (09:00)
[2024-11-14] MEDS ORDERED: CEFD300C2 PO (10:17)
--- NOTE | 2024-11-14 10:19 | DVHDS2 ---
Discharge Summary Date of Admission Nov 12, 2024 at 14:26 Date of Discharge: Nov 14, 2024 Labs/Diagnostic Data: Laboratory Results Test 11/13/24 23:49 11/13/24 20:35 11/13/24 13:15 11/13/24 12:50 Lactic Acid Level 2.0 mmol/L (0.4-2.0) POC Glucose 213 mg/dl (70-106) Urine Color Yellow (Yellow) Urine Clarity Clear (Clear) Urine pH 6.5 (5.0-9.0) Urine Specific [place] 1.024 (1.001-1.035) Urine Protein Trace (Negative) Urine Ketones Trace (Negative) Urine Blood Negative /uL (Negative) Urine Nitrite Negative (Negative) Urine Bilirubin Negative (Negative) Urine Urobilinogen Normal mg/dL (Negative) Urine Leukocyte Esterase Trace /uL (Negative) Urine RBC 4 /hpf (0 - 4) Urine Microscopic WBC 3 /HPF (0-5) Urine Squamous Epithelial Cells Few /hpf (<5) Urine Bacteria Few /hpf (None Seen) Urine Mucus Few (None Seen) Urine Glucose Normal mg/dL (Normal) White Blood Count 6.8 10^3/uL (4.4-10.8) Red Blood Count 4.33 10^6/uL (4.0-5.20) Hemoglobin 14.1 g/dL (12.2-16.2) Hematocrit 42.8 % (36.0-46.0) Mean Corpuscular Volume 98.9 fL (80.0-100.0) Mean Corpuscular Hemoglobin 32.6 pg (28.0-32.0) Mean Corpuscular Hemoglobin Concent 33.0 g/dL (32.0-36.0) Red Cell Distribution Width 13.5 % (11.8-14.3) Platelet Count 274 10^3/uL (140-450) Mean Platelet Volume 7.7 fL (6.9-10.8) Neutrophils (%) (Auto) 66.6 % (37.0-80.0) Lymphocytes (%) (Auto) 24.8 % (10.0-50.0) Monocytes (%) (Auto) 6.9 % (0.0-12.0) Eosinophils (%) (Auto) 1.3 % (0.0-7.0) Basophils (%) (Auto) 0.4 % (0.0-2.0) Neutrophils # (Auto) 4.5 10 ^3/uL (1.6-8.6) Lymphocytes # (Auto) 1.7 10 ^3/uL (0.4-5.4) Monocytes # (Auto) 0.5 10 ^3/uL (0-1.3) Eosinophils # (Auto) 0.1 10 ^3/uL (0-0.8) Basophils # (Auto) 0 10 ^3/uL (0-0.2) Nucleated Red Blood Cells 0.0 % Sodium Level 138 mmol/L (136-145) Potassium Level 4.5 mmol/L (3.5-5.1) Chloride Level 104 mmol/L (98-107) Carbon Dioxide Level 23 mmol/L (20-31) Anion Gap 11 (5-15) Blood Urea Nitrogen 16 mg/dL (9-23) Creatinine 0.91 mg/dL (0.550-1.02) Glomerular Filtration Rate Calc 64 mL/min (>90) BUN/Creatinine Ratio 17.6 (10.0-20.0) Serum Glucose 210 mg/dL (74-106) Calcium Level 10.2 mg/dL (8.7-10.4) Test 11/12/24 19:45 11/12/24 14:50 11/12/24 11:18 Troponin I High Sensitivity 12 ng/L (</=34) Prothrombin Time 12.6 sec (9.3-11.8) Prothrombin Time INR 1.21 (0.9-1.15) Activated Partial Thromboplast Time 27.0 SEC (24.5-34.5) Total Bilirubin 1.0 mg/dL (0.2-1.0) Aspartate Amino Transferase (AST) 21 U/L (13-40) Alanine Aminotransferase (ALT) 11 U/L (7-40) Alkaline Phosphatase 82 U/L (46-116) Total Protein 6.5 g/dL (5.7-8.2) Albumin 4.0 g/dL (3.2-4.8) Other Laboratory Tests 11/13/24 12:50 Brief Hx & Hospital Course: This is a 78 year old female BIBA presenting to the ED with chief complaint of nausea. EMS reports that the patient's family had noticed the patient appeared nauseous with associated diaphoresis and pale skin, however, after calling 911, all her symptoms resolved at home. EMS relays that the family wished to have her transported to the hospital anyway for evaluation. EMS states patient is difficult to converse with at baseline due to her history of dementia. Patient unable to answer questions properly at this time. Initial urinalysis showed possible UTI. Patient admitted empirically treated with IV antibiotics IV fluids. However given her advanced dementia patient is agitated and refused most of her treatment. Patient's lactic acid has improved. She is afebrile and white cell count is normal. Urine culture did not eventually show any growth. Blood cultures have been also negative. Therefore it is felt she could be safely discharged home with brief oral antibiotics to finish the course for possible urinary tract infection. Otherwise while in the hospital rest of her evaluation workup is normal. Condition at Discharge: Stable Final Diagnosis/Problems List UTI, dementia Discharge Disposition: Home Discharge Instruct/Medications Diet: Consistent carbohydrate, Cardiac 2g Na,low cholest Activity: No Restrictions, As Tolerated Follow Up/Referral: PCP next week to repeat Urine Analysis Medications: antibiotic as prescribed and home meds New Medications: Cefdinir (Cefdinir) 300 Mg Cap 1 CAP PO BID, #14 CAP Continued Medications: Amlodipine Besylate (Amlodipine Besylate) 10 Mg Tab 1 TAB PO DAILY, #90 HOLD IF SYSOLIC BP BELOW 120 Apixaban Base (Eliquis) 2.5 Mg Tab 5 MG PO BID, #60 TAB Atorvastatin Calcium (Atorvastatin Calcium) 20 Mg Tab 40 MG PO HS, #60 TAB Memantine Hydrochloride (Namenda Xr) 28 Mg Cap 1 TAB DAILY, #30 Metformin Hydrochloride (Metformin Hcl) 1,000 Mg Tab 1 TAB PO BID, #180 Metoprolol Succinate (Toprol Xl) 50 Mg Tb 25 MG PO DAILY, #30 TAB Omeprazole (Prilosec) 20 Mg Cap 1 CAP PO DAILY, #90 CAP 1 Refill Discontinued Medications: Sulfamethoxazole W/Trimethopri (Bactrim Ds Tablet) 1 Tab Tb 1 TAB PO BID, #14 TAB Scheduled Amlodipine Besylate (Amlodipine Besylate), 1 TAB PO DAILY, (Reported) Apixaban Base (Eliquis), 5 MG PO BID Atorvastatin Calcium (Atorvastatin Calcium), 40 MG PO HS Cefdinir (Cefdinir), 1 CAP PO BID Memantine Hydrochloride (Namenda Xr), 1 TAB DAILY, (Reported) Metformin Hydrochloride (Metformin Hcl), 1 TAB PO BID, (Reported) Metoprolol Succinate (Toprol Xl), 25 MG PO DAILY Omeprazole (Prilosec), 1 CAP PO DAILY, (Reported) Discontinued Medications Sulfamethoxazole W/Trimethopri (Bactrim Ds Tablet), 1 TAB PO BID Discharge Statement: "Patient was advised to return to the ER or call 911 if any headaches, dizziness, shortness of breath, chest pain, abdominal pain, bleeding, fevers, or worsening of medical condition. Patient was counseled about treatment plan, medications, possible side effects, patientverbalized understanding. All questions were answered to the best of my ability. This discharge took greater then 30 minutes in planning, reviewing documentation, counseling the patient, and discussing with other team members." ASSESSMENT ASSESSMENT Assessment UTI, dementia KELLY VALDES MD Nov 14, 2024 10:19
== END 2024-11-14 11:44 | disposition home or self-care (01) | DRG 689 ==
LOC: EDBD 10:57 → ER 10:57 → OVERFLOW 14:26 → TELE-CENTR 21:43 → CENTRAL 11-14 00:45
PROVIDERS: ADMIT Hospitalist; ATTEND Hospitalist
DX: N30.00 Acute cystitis without hematuria (principal); G93.41 Metabolic encephalopathy; I50.9 Heart failure, unspecified; I11.0 Hypertensive heart disease with heart failure; E11.9 Type 2 diabetes mellitus without complications; F03.90 Unspecified dementia, unspecified severity, without behavioral disturbance, psychotic disturbance, mood disturbance, and anxiety; I48.91 Unspecified atrial fibrillation; Z53.20 Procedure and treatment not carried out because of patient's decision for unspecified reasons; Z90.710 Acquired absence of both cervix and uterus; Z87.440 Personal history of urinary (tract) infections; Z86.73 Personal history of transient ischemic attack (TIA), and cerebral infarction without residual deficits; Z82.49 Family history of ischemic heart disease and other diseases of the circulatory system
CPT/HCPCS: 36415; 71045; 80048; 80053; 81001; 82962; 83605; 84484; 85025; 85610; 85730; 87040; 87086; 93005; 96365; 97110; 97163; G0378; J1815